=== PATIENT | female | born 1990 | race Caucasian/White ===

== ENCOUNTER 2017-07-13 19:45 | Emergency (ER) | payer OTHER ==
[2017-07-13] MEDS: ONDANSETRON (ODT) 4 MG TAB ODT (23:57)
[2017-07-13] MEDS: ACETAMINOPHEN 325 MG TAB PO (23:58)
[2017-07-14 00:23] LABS: ADD UMIC NO; UR ASCORBIC ACID NEGATIVE (NEGATIVE); UR BILIRUBIN (Dip) NEGATIVE (NEGATIVE); UR BLOOD (Dip) NEGATIVE (NEGATIVE); UR CLARITY CLEAR (CLEAR); UR COLOR YELLOW (YELLOW); UR GLUCOSE (Dip) NEGATIVE (NEGATIVE); UR KETONES (Dip) 1+ mg/dL (NEGATIVE); UR LEUKOCYTE ESTERASE (Dip) NEGATIVE Leu/ul (NEGATIVE); UR NITRITE (Dip) NEGATIVE (NEGATIVE); UR SPECIFIC GRAVITY (Dip) 1.014 (1.003-1.030); UR TOTAL PROTEIN (Dip) NEGATIVE (NEGATIVE); UR UROBILINOGEN (Dip) NEGATIVE (NEGATIVE)
== END 2017-07-14 01:54 | disposition home or self-care (01) ==
LOC: FTE 19:45
DX: O98.511 Other viral diseases complicating pregnancy, first trimester (principal); B34.9 Viral infection, unspecified; R10.2 Pelvic and perineal pain; Z3A.11 11 weeks gestation of pregnancy
CPT/HCPCS: 81003; 99283

== ENCOUNTER 2017-09-03 14:17 | Emergency (ER) | payer OTHER ==
[2017-09-03] MEDS: SOD CHLORIDE 0.9% 1,000 ML IV (17:13)
[2017-09-03] MEDS: ACETAMINOPHEN 325 MG TAB PO (17:13)
[2017-09-03 17:44] LABS: ADD MAN DIFF? NO
[2017-09-03 17:46] LABS: WHITE BLOOD COUNT 12.8 10^3/ul (4.8-10.8)
[2017-09-03 17:46] LABS: BASOPHILS % 0.2 % (0.0-2.0); EOSINOPHILS # 0.1 10^3/ul (0.0-0.5); EOSINOPHILS % 0.9 % (0.0-7.0); HEMATOCRIT 37.1 % (37.0-47.0); HEMOGLOBIN 12.6 g/dl (12.0-16.0); LYMPHOCYTES # 2.8 10^3/ul (0.8-2.9); MEAN CORPUSCULAR HEMOGLOBIN 30.1 pg (29.0-33.0); MEAN CORPUSCULAR VOLUME 88.8 fl (82.0-101.0); MEAN PLATELET VOLUME 12.3 fl (7.4-10.4); MONOCYTE # 0.7 10^3/ul (0.3-0.9); MONOCYTES % 5.3 % (0.0-11.0); NEUTROPHIL # 9.1 10^3/ul (1.6-7.5); NEUTROPHILS % 71.1 % (39.0-77.0); PLATELET COUNT 261 10^3/UL (140-415); RED BLOOD COUNT 4.18 10^6/ul (4.20-5.40); RED CELL DISTRIBUTION WIDTH 12.6 % (11.5-14.5)
[2017-09-03 17:59] LABS: ADD UMIC NO; UR ASCORBIC ACID NEGATIVE (NEGATIVE); UR BILIRUBIN (Dip) NEGATIVE (NEGATIVE); UR BLOOD (Dip) NEGATIVE (NEGATIVE); UR CLARITY CLEAR (CLEAR); UR COLOR COLORLESS (YELLOW); UR GLUCOSE (Dip) NEGATIVE (NEGATIVE); UR KETONES (Dip) NEGATIVE (NEGATIVE); UR LEUKOCYTE ESTERASE (Dip) NEGATIVE Leu/ul (NEGATIVE); UR NITRITE (Dip) NEGATIVE (NEGATIVE); UR SPECIFIC GRAVITY (Dip) 1.003 (1.003-1.030); UR TOTAL PROTEIN (Dip) NEGATIVE (NEGATIVE); UR UROBILINOGEN (Dip) NEGATIVE (NEGATIVE)
[2017-09-03 18:08] LABS: ALANINE AMINOTRANSFERASE 21 IU/L (13-69); ALBUMIN 3.9 g/dl (3.3-4.9); ALKALINE PHOSPHATASE 50 IU/L (42-121); ANION GAP 13 (8-16); ASPARTATE AMINO TRANSFERASE 20 IU/L (15-46); BLOOD UREA NITROGEN 3 mg/dl (7-20); CARBON DIOXIDE 22 mmol/L (21-31); CHLORIDE 107 mmol/L (97-110); CREATININE 0.44 mg/dl (0.44-1.00); GLUCOSE 94 mg/dl (70-220); POTASSIUM 4.2 mmol/L (3.5-5.1); SODIUM 138 mmol/L (135-144); TOTAL PROTEIN 6.9 g/dl (6.1-8.1)
[2017-09-03 18:34] LABS: INR 0.96; PROTIME 12.9 Sec (11.9-14.9)
[2017-09-03 18:35] LABS: PARTIAL THROMBOPLASTIN TIME 29.7 Sec (25.0-35.0)
[2017-09-03 18:43] LABS: D-DIMER 337.37 ng/ml (<460)
== END 2017-09-03 19:57 | disposition home or self-care (01) ==
LOC: FTE 14:17
DX: O99.89 Other specified diseases and conditions complicating pregnancy, childbirth and the puerperium (principal); R06.02 Shortness of breath; R10.2 Pelvic and perineal pain; Z3A.18 18 weeks gestation of pregnancy
CPT/HCPCS: 76810; 80053; 81003; 84702; 85025; 85378; 85610; 85730; 86900; 86901; 87086; 93005; 99285-25

== ENCOUNTER 2017-09-07 19:16 | Emergency (ER) | payer OTHER ==
[2017-09-07 22:46] LABS: ADD UMIC NO; UR ASCORBIC ACID NEGATIVE (NEGATIVE); UR BILIRUBIN (Dip) NEGATIVE (NEGATIVE); UR BLOOD (Dip) NEGATIVE (NEGATIVE); UR CLARITY CLEAR (CLEAR); UR COLOR STRAW (YELLOW); UR GLUCOSE (Dip) NEGATIVE (NEGATIVE); UR KETONES (Dip) NEGATIVE (NEGATIVE); UR LEUKOCYTE ESTERASE (Dip) NEGATIVE Leu/ul (NEGATIVE); UR NITRITE (Dip) NEGATIVE (NEGATIVE); UR SPECIFIC GRAVITY (Dip) 1.002 (1.003-1.030); UR TOTAL PROTEIN (Dip) NEGATIVE (NEGATIVE); UR UROBILINOGEN (Dip) NEGATIVE (NEGATIVE)
[2017-09-07 23:06] LABS: ADD MAN DIFF? NO
[2017-09-07 23:08] LABS: WHITE BLOOD COUNT 15.5 10^3/ul (4.8-10.8)
[2017-09-07 23:08] LABS: BASOPHILS % 0.2 % (0.0-2.0); EOSINOPHILS # 0.2 10^3/ul (0.0-0.5); EOSINOPHILS % 1.3 % (0.0-7.0); HEMATOCRIT 37.6 % (37.0-47.0); HEMOGLOBIN 12.8 g/dl (12.0-16.0); LYMPHOCYTES # 3.5 10^3/ul (0.8-2.9); LYMPHOCYTES % 22.7 % (15.0-51.0); MEAN CORPUSCULAR HEMOGLOBIN 30.3 pg (29.0-33.0); MEAN CORPUSCULAR VOLUME 88.9 fl (82.0-101.0); MEAN PLATELET VOLUME 11.8 fl (7.4-10.4); MONOCYTE # 0.9 10^3/ul (0.3-0.9); MONOCYTES % 5.9 % (0.0-11.0); NEUTROPHIL # 10.8 10^3/ul (1.6-7.5); NEUTROPHILS % 69.4 % (39.0-77.0); PLATELET COUNT 267 10^3/UL (140-415); RED BLOOD COUNT 4.23 10^6/ul (4.20-5.40); RED CELL DISTRIBUTION WIDTH 12.4 % (11.5-14.5)
[2017-09-07 23:26] LABS: ALANINE AMINOTRANSFERASE 18 IU/L (13-69); ALBUMIN 3.9 g/dl (3.3-4.9); ALBUMIN/GLOBULIN RATIO 1.11; ALKALINE PHOSPHATASE 57 IU/L (42-121); ANION GAP 13 (8-16); ASPARTATE AMINO TRANSFERASE 14 IU/L (15-46); BILIRUBIN,INDIRECT 0.2 mg/dl (0-1.1); BILIRUBIN,TOTAL 0.2 mg/dl (0.2-1.3); BLOOD UREA NITROGEN 3 mg/dl (7-20); CALCIUM 9.4 mg/dl (8.4-10.2); CARBON DIOXIDE 25 mmol/L (21-31); CHLORIDE 102 mmol/L (97-110); CREATININE 0.49 mg/dl (0.44-1.00); GLUCOSE 89 mg/dl (70-220); POTASSIUM 3.6 mmol/L (3.5-5.1); SODIUM 136 mmol/L (135-144); TOTAL PROTEIN 7.4 g/dl (6.1-8.1)
[2017-09-07] MEDS: ACETAMINOPHEN 500 MG TAB PO (23:55)
[2017-09-07] MEDS: ONDANSETRON (ODT) 4 MG TAB ODT (23:55)
== END 2017-09-08 00:08 | disposition home or self-care (01) ==
LOC: FTE 09-08 00:08
DX: O99.89 Other specified diseases and conditions complicating pregnancy, childbirth and the puerperium (principal); R51 Headache; Z3A.19 19 weeks gestation of pregnancy
CPT/HCPCS: 76805; 80053; 81003; 85025; 99284-25

== ENCOUNTER 2017-10-04 17:21 | Outpatient (CLI) | payer OTHER ==
[2017-10-04] MEDS ORDERED: LACTATED RINGER'S 1,000 ML IV (19:30)
[2017-10-04] MEDS: LACTATED RINGER'S 1,000 ML IV (20:05)
[2017-10-04] MEDS: ACETAMINOPHEN 325 MG TAB PO (20:47)
[2017-10-04 20:51] LABS: ADD MAN DIFF? NO
[2017-10-04 20:58] LABS: WHITE BLOOD COUNT 13.7 10^3/ul (4.8-10.8)
[2017-10-04 20:59] LABS: BASOPHILS % 0.2 % (0.0-2.0); EOSINOPHILS # 0.2 10^3/ul (0.0-0.5); EOSINOPHILS % 1.3 % (0.0-7.0); HEMATOCRIT 35.6 % (37.0-47.0); LYMPHOCYTES % 21.9 % (15.0-51.0); MEAN CORPUSCULAR HEMOGLOBIN 29.6 pg (29.0-33.0); MEAN CORPUSCULAR HGB CONC 33.7 g/dl (32.0-37.0); MEAN CORPUSCULAR VOLUME 87.7 fl (82.0-101.0); MEAN PLATELET VOLUME 11.6 fl (7.4-10.4); MONOCYTE # 0.7 10^3/ul (0.3-0.9); NEUTROPHIL # 9.8 10^3/ul (1.6-7.5); NEUTROPHILS % 71.3 % (39.0-77.0); PLATELET COUNT 259 10^3/UL (140-415); RED BLOOD COUNT 4.06 10^6/ul (4.20-5.40); RED CELL DISTRIBUTION WIDTH 12.6 % (11.5-14.5)
[2017-10-04 21:15] LABS: ALANINE AMINOTRANSFERASE 22 IU/L (13-69); ALBUMIN 3.6 g/dl (3.3-4.9); ALBUMIN/GLOBULIN RATIO 1.05; ALKALINE PHOSPHATASE 71 IU/L (42-121); ANION GAP 18 (8-16); ASPARTATE AMINO TRANSFERASE 16 IU/L (15-46); BILIRUBIN,INDIRECT 0.3 mg/dl (0-1.1); BILIRUBIN,TOTAL 0.3 mg/dl (0.2-1.3); BLOOD UREA NITROGEN 4 mg/dl (7-20); CALCIUM 8.9 mg/dl (8.4-10.2); CARBON DIOXIDE 20 mmol/L (21-31); CHLORIDE 107 mmol/L (97-110); CREATININE 0.45 mg/dl (0.44-1.00); GLUCOSE 68 mg/dl (70-220); POTASSIUM 3.6 mmol/L (3.5-5.1); SODIUM 141 mmol/L (135-144)
[2017-10-04 22:20] LABS: ADD UMIC NO; UR ASCORBIC ACID NEGATIVE (NEGATIVE); UR BACTERIA FEW /HPF (NONE SEEN); UR BILIRUBIN (Dip) NEGATIVE (NEGATIVE); UR BLOOD (Dip) NEGATIVE (NEGATIVE); UR CLARITY SLIGHTLY CLOUDY (CLEAR); UR COLOR YELLOW (YELLOW); UR GLUCOSE (Dip) NEGATIVE (NEGATIVE); UR KETONES (Dip) 2+ mg/dL (NEGATIVE); UR LEUKOCYTE ESTERASE (Dip) NEGATIVE Leu/ul (NEGATIVE); UR MUCUS FEW /HPF (NONE SEEN); UR NITRITE (Dip) NEGATIVE (NEGATIVE); UR RBC 1 /HPF (0-5); UR SPECIFIC GRAVITY (Dip) 1.013 (1.003-1.030); UR SQUAMOUS EPITHELIAL CELL FEW /HPF (FEW); UR TOTAL PROTEIN (Dip) NEGATIVE (NEGATIVE); UR UROBILINOGEN (Dip) NEGATIVE (NEGATIVE); UR WBC 1 /HPF (0-5)
== END 2017-10-04 22:53 | disposition home or self-care (01) ==
LOC: OBT 17:21 → L-D 17:22 → OBT 22:53
DX: O26.892 Other specified pregnancy related conditions, second trimester (principal); Z3A.23 23 weeks gestation of pregnancy; R10.2 Pelvic and perineal pain
CPT/HCPCS: 36415; 76815; 76817; 80053; 81001; 81003; 85025; 86900; 86901; 96360; 96361

== ENCOUNTER 2017-12-09 21:11 | Outpatient (CLI) | payer OTHER ==
[2017-12-09 22:57] LABS: ADD UMIC NO; UR ASCORBIC ACID NEGATIVE (NEGATIVE); UR BILIRUBIN (Dip) NEGATIVE (NEGATIVE); UR BLOOD (Dip) NEGATIVE (NEGATIVE); UR CLARITY CLEAR (CLEAR); UR COLOR COLORLESS (YELLOW); UR GLUCOSE (Dip) NEGATIVE (NEGATIVE); UR KETONES (Dip) NEGATIVE (NEGATIVE); UR LEUKOCYTE ESTERASE (Dip) NEGATIVE Leu/ul (NEGATIVE); UR NITRITE (Dip) NEGATIVE (NEGATIVE); UR SPECIFIC GRAVITY (Dip) 1.002 (1.003-1.030); UR TOTAL PROTEIN (Dip) NEGATIVE (NEGATIVE); UR UROBILINOGEN (Dip) NEGATIVE (NEGATIVE)
[2017-12-09 23:33] LABS: ADD MAN DIFF? NO
[2017-12-09 23:35] LABS: BASOPHILS % 0.2 % (0.0-2.0); EOSINOPHILS # 0.2 10^3/ul (0.0-0.5); EOSINOPHILS % 1.3 % (0.0-7.0); HEMATOCRIT 36.9 % (37.0-47.0); HEMOGLOBIN 12.1 g/dl (12.0-16.0); LYMPHOCYTES # 2.7 10^3/ul (0.8-2.9); MEAN CORPUSCULAR HEMOGLOBIN 28.4 pg (29.0-33.0); MEAN CORPUSCULAR HGB CONC 32.8 g/dl (32.0-37.0); MEAN CORPUSCULAR VOLUME 86.6 fl (82.0-101.0); MEAN PLATELET VOLUME 11.3 fl (7.4-10.4); MONOCYTE # 0.8 10^3/ul (0.3-0.9); MONOCYTES % 6.3 % (0.0-11.0); NEUTROPHIL # 8.7 10^3/ul (1.6-7.5); NEUTROPHILS % 69.6 % (39.0-77.0); PLATELET COUNT 261 10^3/UL (140-415); RED BLOOD COUNT 4.26 10^6/ul (4.20-5.40); RED CELL DISTRIBUTION WIDTH 14.1 % (11.5-14.5)
[2017-12-09 23:35] LABS: WHITE BLOOD COUNT 12.5 10^3/ul (4.8-10.8)
[2017-12-09] MEDS: LACTATED RINGER'S 1,000 ML IV (23:45)
[2017-12-09 23:55] LABS: ALANINE AMINOTRANSFERASE 19 IU/L (13-69); ALBUMIN 3.3 g/dl (3.3-4.9); ALBUMIN/GLOBULIN RATIO 1.06; ALKALINE PHOSPHATASE 93 IU/L (42-121); ANION GAP 11 (8-16); ASPARTATE AMINO TRANSFERASE 21 IU/L (15-46); BILIRUBIN,INDIRECT 0.2 mg/dl (0-1.1); BILIRUBIN,TOTAL 0.2 mg/dl (0.2-1.3); BLOOD UREA NITROGEN 5 mg/dl (7-20); CALCIUM 8.6 mg/dl (8.4-10.2); CARBON DIOXIDE 25 mmol/L (21-31); CHLORIDE 108 mmol/L (97-110); CREATININE 0.45 mg/dl (0.44-1.00); GLUCOSE 93 mg/dl (70-220); POTASSIUM 3.5 mmol/L (3.5-5.1); SODIUM 140 mmol/L (135-144); TOTAL PROTEIN 6.4 g/dl (6.1-8.1); URIC ACID 4.8 mg/dl (3.1-7.9)
[2017-12-10] MEDS ORDERED: LACTATED RINGER'S 1,000 ML IV (00:30)
== END 2017-12-10 02:21 | disposition home or self-care (01) ==
LOC: OBT 21:11 → L-D 21:12
DX: O26.893 Other specified pregnancy related conditions, third trimester (principal); R51 Headache; R42 Dizziness and giddiness; R10.2 Pelvic and perineal pain; O34.219 Maternal care for unspecified type scar from previous cesarean delivery; Z3A.32 32 weeks gestation of pregnancy
CPT/HCPCS: 36415; 76817; 76818; 80053; 81003; 84560; 85025; 96360; 96361

== ENCOUNTER 2018-01-11 15:45 | Inpatient (IN) | payer OTHER ==
[2018-01-11] MEDS: LACTATED RINGER'S 1,000 ML IV ×2 (18:50→20:26)
[2018-01-11] MEDS: TERBUTALINE 1 MG/ML INJ SC ×2 (19:26→19:31)
[2018-01-11 19:37] LABS: ADD UMIC NO; UR ASCORBIC ACID NEGATIVE (NEGATIVE); UR BILIRUBIN (Dip) NEGATIVE (NEGATIVE); UR BLOOD (Dip) NEGATIVE (NEGATIVE); UR CLARITY SLIGHTLY CLOUDY (CLEAR); UR COLOR YELLOW (YELLOW); UR GLUCOSE (Dip) NEGATIVE (NEGATIVE); UR KETONES (Dip) NEGATIVE (NEGATIVE); UR LEUKOCYTE ESTERASE (Dip) NEGATIVE Leu/ul (NEGATIVE); UR NITRITE (Dip) NEGATIVE (NEGATIVE); UR RBC 0 /HPF (0-5); UR SPECIFIC GRAVITY (Dip) 1.016 (1.003-1.030); UR SQUAMOUS EPITHELIAL CELL MODERATE /HPF (FEW); UR TOTAL PROTEIN (Dip) NEGATIVE (NEGATIVE); UR UROBILINOGEN (Dip) NEGATIVE (NEGATIVE); UR WBC 0 /HPF (0-5)
[2018-01-11] MEDS: NIFEdipine 10 MG CAP PO (20:29)
[2018-01-11] MEDS: BETAMET NA PHOS/AC(6 MG/ML) 5ML INJ IM (20:30)
[2018-01-12] MEDS ORDERED: BETAMET NA PHOS/AC(6 MG/ML) 5ML INJ IM (01:00)
[2018-01-12] MEDS: NIFEdipine 10 MG CAP PO ×4 (01:32→17:44)
[2018-01-12] MEDS: LACTATED RINGER'S 1,000 ML IV ×3 (01:34→17:16)
[2018-01-12 04:09] LABS: ADD MAN DIFF? NO
[2018-01-12 04:16] LABS: WHITE BLOOD COUNT 8.9 10^3/ul (4.8-10.8)
[2018-01-12 04:16] LABS: BASOPHILS % 0.1 % (0.0-2.0); EOSINOPHILS % 0.1 % (0.0-7.0); HEMATOCRIT 34.3 % (37.0-47.0); HEMOGLOBIN 11.4 g/dl (12.0-16.0); LYMPHOCYTES # 1.4 10^3/ul (0.8-2.9); LYMPHOCYTES % 15.7 % (15.0-51.0); MEAN CORPUSCULAR HEMOGLOBIN 28.1 pg (29.0-33.0); MEAN CORPUSCULAR HGB CONC 33.2 g/dl (32.0-37.0); MEAN CORPUSCULAR VOLUME 84.5 fl (82.0-101.0); MEAN PLATELET VOLUME 12.1 fl (7.4-10.4); MONOCYTE # 0.1 10^3/ul (0.3-0.9); MONOCYTES % 1.3 % (0.0-11.0); NEUTROPHIL # 7.3 10^3/ul (1.6-7.5); NEUTROPHILS % 81.8 % (39.0-77.0); PLATELET COUNT 209 10^3/UL (140-415); RED BLOOD COUNT 4.06 10^6/ul (4.20-5.40); RED CELL DISTRIBUTION WIDTH 13.7 % (11.5-14.5)
[2018-01-12 04:35] LABS: INR 0.96; PROTIME 12.9 Sec (11.9-14.9)
[2018-01-12 04:36] LABS: PARTIAL THROMBOPLASTIN TIME 28.3 Sec (25.0-35.0)
[2018-01-12] MEDS: ONDANSETRON 4 MG INJ IV ×2 (05:49→10:29)
[2018-01-12] MEDS: BETAMET NA PHOS/AC(6 MG/ML) 5ML INJ IM (09:33)
[2018-01-12] MEDS ORDERED: CEFAZOLIN 2 GM/50 ML (PMX) 50 ML IVPB ×2 (14:00→14:30)
[2018-01-12 15:24] LABS: RAPID PLASMA REAGIN NONREACTIVE (NR)
[2018-01-12] MEDS: AL HYDROX/MG HYDROX/SIMETH 30 ML CUP PO (20:52)
[2018-01-12] MEDS ORDERED: FAMOTIDINE 20 MG INJ IV (21:00)
[2018-01-13] MEDS: NIFEdipine 10 MG CAP PO ×5 (00:15→23:36)
[2018-01-13] MEDS: ONDANSETRON 4 MG INJ IV ×2 (00:15→06:19)
[2018-01-13] MEDS: LACTATED RINGER'S 1,000 ML IV ×4 (00:15→22:26)
[2018-01-13] MEDS: AL HYDROX/MG HYDROX/SIMETH 30 ML CUP PO (07:46)
[2018-01-14] MEDS: NIFEdipine 10 MG CAP PO ×3 (05:56→18:03)
[2018-01-14] MEDS: LACTATED RINGER'S 1,000 ML IV ×3 (05:59→22:43)
[2018-01-14] MEDS: ONDANSETRON 4 MG INJ IV ×2 (06:01→12:02)
[2018-01-14] MEDS ORDERED: AL HYDROX/MG HYDROX/SIMETH 30 ML CUP PO (14:00)
[2018-01-14] MEDS: FAMOTIDINE 20 MG INJ IVPB ×2 (14:00→21:00)
[2018-01-14 16:52] LABS: ADD MAN DIFF? NO
[2018-01-14 16:58] LABS: BASOPHILS % 0.2 % (0.0-2.0); EOSINOPHILS # 0.1 10^3/ul (0.0-0.5); EOSINOPHILS % 0.4 % (0.0-7.0); HEMATOCRIT 31.5 % (37.0-47.0); LYMPHOCYTES # 2.7 10^3/ul (0.8-2.9); LYMPHOCYTES % 21.1 % (15.0-51.0); MEAN CORPUSCULAR HEMOGLOBIN 27.7 pg (29.0-33.0); MEAN CORPUSCULAR HGB CONC 31.7 g/dl (32.0-37.0); MEAN CORPUSCULAR VOLUME 87.3 fl (82.0-101.0); MEAN PLATELET VOLUME 12.3 fl (7.4-10.4); MONOCYTE # 1.3 10^3/ul (0.3-0.9); NEUTROPHIL # 8.8 10^3/ul (1.6-7.5); NEUTROPHILS % 67.9 % (39.0-77.0); PLATELET COUNT 185 10^3/UL (140-415); RED BLOOD COUNT 3.61 10^6/ul (4.20-5.40); RED CELL DISTRIBUTION WIDTH 14.1 % (11.5-14.5)
[2018-01-14 17:20] LABS: AMYLASE 53 U/L (11-123); LIPASE 50 U/L (23-300)
[2018-01-14 17:20] LABS: ALANINE AMINOTRANSFERASE 21 IU/L (13-69); ALBUMIN/GLOBULIN RATIO 1.15; ALKALINE PHOSPHATASE 107 IU/L (42-121); ANION GAP 14 (8-16); ASPARTATE AMINO TRANSFERASE 17 IU/L (15-46); BILIRUBIN,INDIRECT 0.2 mg/dl (0-1.1); BILIRUBIN,TOTAL 0.2 mg/dl (0.2-1.3); BLOOD UREA NITROGEN 6 mg/dl (7-20); CALCIUM 8.4 mg/dl (8.4-10.2); CARBON DIOXIDE 26 mmol/L (21-31); CHLORIDE 103 mmol/L (97-110); CREATININE 0.57 mg/dl (0.44-1.00); GLUCOSE 88 mg/dl (70-220); POTASSIUM 3.6 mmol/L (3.5-5.1); SODIUM 139 mmol/L (135-144); TOTAL PROTEIN 5.6 g/dl (6.1-8.1)
[2018-01-14 17:52] LABS: HEPATITIS B SURFACE ANTIGEN NEGATIVE (NEGATIVE)
[2018-01-15] MEDS: ONDANSETRON 4 MG INJ IV ×3 (05:46→16:03)
[2018-01-15] MEDS: LACTATED RINGER'S 1,000 ML IV ×3 (06:10→20:06)
[2018-01-15] MEDS: NIFEdipine 10 MG CAP PO ×2 (06:10)
[2018-01-15] MEDS ORDERED: OXYTOCIN 30 UNITS/LR 500 ML BAG IV (07:00)
[2018-01-15] MEDS: AMPICILLIN 2 GM/NS (PMX) 100 ML IV (11:40)
[2018-01-15] MEDS: CEFAZOLIN 2 GM/50 ML (PMX) 50 ML IVPB (15:00)
[2018-01-15] MEDS: AMPICILLIN 1 GM/NS (PMX) 50 ML IV (15:17)
[2018-01-15] MEDS ORDERED: CITRIC ACID/SODIUM CITRATE 15 ML CUP (15:56)
[2018-01-15] MEDS: CITRIC ACID/SODIUM CITRATE 15 ML CUP PO (16:03)
[2018-01-15] MEDS ORDERED: OXYTOCIN 10 UNIT INJ (16:21)
[2018-01-15] MEDS ORDERED: PHENYLephrine (100 MCG/ML) 10ML SYG (16:21)
[2018-01-15] MEDS ORDERED: morphine SULFATE/PF (10 MG/10 ML) INJ (16:21)
[2018-01-15] MEDS ORDERED: BUPIVACAINE 0.75%/DEXT (SPINAL) 2 ML INJ (16:21)
[2018-01-15] MEDS ORDERED: DEXAMETHASONE 4 MG/ML 1 ML INJ (16:32)
[2018-01-15] MEDS ORDERED: KETOROLAC 30 MG INJ (16:32)
[2018-01-15] MEDS ORDERED: METOCLOPRAMIDE 10 MG INJ (16:32)
[2018-01-15] MEDS ORDERED: MEPERIDINE 100 MG INJ (16:45)
[2018-01-15] MEDS: OXYTOCIN 30 UNITS/LR 500 ML IV ×2 (18:09→19:59)
[2018-01-15] MEDS ORDERED: HYDROmorphONE 0.5 MG/0.5 ML SYG IV ×2 (19:00)
[2018-01-15] MEDS ORDERED: NALOXONE (0.4 MG/ML) INJ IV (19:00)
[2018-01-15] MEDS ORDERED: ACETAMINOPHEN 500 MG TAB PO (19:00)
[2018-01-15] MEDS ORDERED: NALBUPHINE HCL (10 MG/1 ML) INJ IV (19:00)
[2018-01-15] MEDS ORDERED: ONDANSETRON 4 MG INJ IV (19:00)
[2018-01-15] MEDS ORDERED: morphine 2 MG INJ IV ×2 (19:00)
[2018-01-15] MEDS: CEFAZOLIN 2 GM/50 ML (PMX) 50 ML IV (20:21)
[2018-01-15] MEDS ORDERED: CARBOPROST 250 MCG INJ IM (20:30)
[2018-01-15] MEDS ORDERED: METHYLERGONOVINE 0.2 MG INJ IM (20:30)
[2018-01-15] MEDS ORDERED: NA PHOSPHATE/BIPHOS 133 ML ENEMA PR (20:30)
[2018-01-15] MEDS ORDERED: OXYTOCIN 30 UNITS/LR 500 ML IV (20:30)
[2018-01-15] MEDS ORDERED: MISOPROSTOL 200 MCG TAB PR (20:30)
[2018-01-15] MEDS: SENNA/DOCUSATE NA (8.6MG/50MG) TAB PO (21:00)
[2018-01-15] MEDS: DIPHENHYDRAMINE 50 MG INJ IV (22:57)
[2018-01-16] MEDS: OXYTOCIN 30 UNITS/LR 500 ML IV ×3 (00:54→10:30)
[2018-01-16] MEDS: CEFAZOLIN 2 GM/50 ML (PMX) 50 ML IV ×2 (04:10→12:00)
[2018-01-16] MEDS: CLINDAMYCIN 300 MG CAP PO ×4 (05:53→17:26)
[2018-01-16] MEDS: KETOROLAC 30 MG INJ IV ×2 (06:08→11:57)
[2018-01-16 08:45] LABS: ADD MAN DIFF? NO
[2018-01-16 08:48] LABS: BASOPHILS % 0.2 % (0.0-2.0); EOSINOPHILS % 0.1 % (0.0-7.0); HEMATOCRIT 32.7 % (37.0-47.0); HEMOGLOBIN 10.5 g/dl (12.0-16.0); LYMPHOCYTES # 2.9 10^3/ul (0.8-2.9); LYMPHOCYTES % 18.5 % (15.0-51.0); MEAN CORPUSCULAR HEMOGLOBIN 27.8 pg (29.0-33.0); MEAN CORPUSCULAR HGB CONC 32.1 g/dl (32.0-37.0); MEAN CORPUSCULAR VOLUME 86.5 fl (82.0-101.0); MEAN PLATELET VOLUME 12.5 fl (7.4-10.4); MONOCYTE # 1.4 10^3/ul (0.3-0.9); MONOCYTES % 8.7 % (0.0-11.0); NEUTROPHIL # 11.5 10^3/ul (1.6-7.5); NEUTROPHILS % 72.1 % (39.0-77.0); PLATELET COUNT 199 10^3/UL (140-415); RED BLOOD COUNT 3.78 10^6/ul (4.20-5.40); RED CELL DISTRIBUTION WIDTH 13.7 % (11.5-14.5)
[2018-01-16 08:48] LABS: WHITE BLOOD COUNT 15.9 10^3/ul (4.8-10.8)
[2018-01-16] MEDS: SENNA/DOCUSATE NA (8.6MG/50MG) TAB PO ×2 (09:08→20:39)
[2018-01-16] MEDS: LACTATED RINGER'S 1,000 ML IV ×2 (09:12→12:06)
[2018-01-16] MEDS: OXYCODONE/ACETAMINOPHEN (5/325) TAB PO (17:26)
[2018-01-16] MEDS: BISACODYL 10 MG SUPP PR (17:26)
[2018-01-16] MEDS: HYDROCODONE/APAP (5/325) TAB PO (20:41)
[2018-01-16] MEDS: CLOTRIMAZOLE 1% 30 GM CR TOP (21:00)
[2018-01-17] MEDS: HYDROCODONE/APAP (5/325) TAB PO (03:38)
[2018-01-17] MEDS: IBUPROFEN 800 MG TAB PO ×4 (03:38→22:40)
[2018-01-17] MEDS: LACTATED RINGER'S 1,000 ML IV (03:57)
[2018-01-17] MEDS: OXYTOCIN 30 UNITS/LR 500 ML IV (03:57)
[2018-01-17] MEDS: CLINDAMYCIN 300 MG CAP PO ×4 (05:53→18:22)
[2018-01-17] MEDS: OXYCODONE/ACETAMINOPHEN (5/325) TAB PO ×2 (08:52→16:44)
[2018-01-17] MEDS: SENNA/DOCUSATE NA (8.6MG/50MG) TAB PO ×2 (08:52→22:39)
[2018-01-17] MEDS: CLOTRIMAZOLE 1% 30 GM CR TOP ×2 (09:00→21:00)
[2018-01-17 09:09] LABS: ADD MAN DIFF? NO
[2018-01-17 09:18] LABS: BASOPHILS % 0.2 % (0.0-2.0); EOSINOPHILS # 0.3 10^3/ul (0.0-0.5); EOSINOPHILS % 1.7 % (0.0-7.0); HEMATOCRIT 33.1 % (37.0-47.0); HEMOGLOBIN 10.5 g/dl (12.0-16.0); LYMPHOCYTES # 3.2 10^3/ul (0.8-2.9); LYMPHOCYTES % 20.2 % (15.0-51.0); MEAN CORPUSCULAR HEMOGLOBIN 27.6 pg (29.0-33.0); MEAN CORPUSCULAR HGB CONC 31.7 g/dl (32.0-37.0); MEAN CORPUSCULAR VOLUME 86.9 fl (82.0-101.0); MEAN PLATELET VOLUME 12.3 fl (7.4-10.4); MONOCYTE # 1.1 10^3/ul (0.3-0.9); NEUTROPHILS % 70.5 % (39.0-77.0); PLATELET COUNT 201 10^3/UL (140-415); RED BLOOD COUNT 3.81 10^6/ul (4.20-5.40); RED CELL DISTRIBUTION WIDTH 13.8 % (11.5-14.5)
[2018-01-17 09:18] LABS: WHITE BLOOD COUNT 15.6 10^3/ul (4.8-10.8)
[2018-01-17] MEDS: LANOLIN 7 GM TUBE TOP (16:44)
[2018-01-18] MEDS: CLINDAMYCIN 300 MG CAP PO ×3 (00:48→12:59)
[2018-01-18] MEDS: HYDROCODONE/APAP (5/325) TAB PO (00:55)
[2018-01-18] MEDS: IBUPROFEN 800 MG TAB PO ×3 (05:46→15:00)
[2018-01-18] MEDS: DIPHTH/TET/ACEL PERTUSS (ADULT) 0.5 ML VIAL IM* (08:39)
[2018-01-18] MEDS: MEASLES,MUMPS,RUBELLA VACCINE INJ SC* (08:40)
[2018-01-18] MEDS: CLOTRIMAZOLE 1% 30 GM CR TOP (08:41)
[2018-01-18] MEDS: SENNA/DOCUSATE NA (8.6MG/50MG) TAB PO (08:46)
[2018-01-18] MEDS: OXYCODONE/ACETAMINOPHEN (5/325) TAB PO (08:46)
== END 2018-01-18 17:00 | disposition home or self-care (01) | DRG 766 ==
LOC: OBT 15:45 → L-D 15:46 → PP1 01-15 20:56
PROC: 10D00Z1 Extraction of Products of Conception, Low, Open Approach (ICD-10-PCS; principal; 2018-01-15 16:45)
DX: O60.14X0 Preterm labor third trimester with preterm delivery third trimester, not applicable or unspecified (principal); O34.211 Maternal care for low transverse scar from previous cesarean delivery; Z3A.36 36 weeks gestation of pregnancy; Z37.0 Single live birth
CPT/HCPCS: 36415; 76815; 76818; 80053; 81001; 81003; 82150; 83690; 85025; 85610; 85730; 86592; 86850; 86900; 86901; 87086; 87340; 96360; 96361; 99464